=== PATIENT | male | born 1965 | race Caucasian/White ===

== ENCOUNTER → 2017-03-06 | Outpatient (CLI) | payer OTHER ==
--- NOTE | ~2017-03-06 | US85 ---
[facility] A Service of [facility] RADIOLOGY TEXT RESULTS PATIENT: ANUEL MOTTA LOCATION: [facility] : 67 UNIT #: [id number] AGE: [address]: Amarilys Salgado MD SEX: M ORDER DR: [id number] [facility] [address] [place], [place] [address] [id number] O MR#: [id number] Acc #: [id number] NAME: ANUEL OMTTA : 1965 SEX: M STUDY DATE/TIME: 03/06/2017 14:25 UNIT: [facility] ROOM: STUDY DESCRIPTION: LE Veins Unilat or Ltd Stdy Attending Physician: Amarilys Salgado M.D. Referring Physician: Amarilys Salgado M.D. Ordering Physician: Amarilys Salgado M.D. Primary Care Physician: Amarilys Salgado M.D. MEDICAL IMAGING REPORT This report is preliminary unless electronic signature is present EXAM Left leg vein Doppler 03/06. INDICATIONS Pain and swelling intermittently over the last month. FINDINGS TECHNIQUE Venous ultrasound examination of the left lower extremity was performed using grayscale, spectral Doppler and color flow Doppler imaging. FINDINGS The examination is negative. There is no evidence of left lower extremity deep venous thrombus from the groin to the lower calf. Visualized greater saphenous vein is also patent. IMPRESSION Negative examination. No evidence of left lower extremity deep venous thrombosis. Dictated by... Rachid Prather Jr., M.D. THIS IS AN ELECTRONICALLY VERIFIED REPORT Rachid Prather Jr., M.D. at 03/07/2017 1:53 PM SHANTA/yulisa TD: 03/07/2017 08:25 JOB #: [id number] MEDICAL IMAGING REPORT Page 1 of 1 COPY
== END | disposition home or self-care (01) ==
LOC: CNIV 14:03
DX: M79.89 Other specified soft tissue disorders (principal)
CPT/HCPCS: 93971